=== PATIENT | female | born 1975 | race Caucasian/White ===

== ENCOUNTER → 2020-08-15 | Outpatient (CLI) | payer BC, OTHER ==
[~2020-08-15] MED LIST: ASPIR 8181 MG PO; BACTROBAN OINT22 GM EXT; CLEOCIN HCL300 MG PO; DIFLUCAN150 MG PO; EFFEXOR 25 MG T25 MG PO; IBUPROFEN600 MG PO; LODINE CAP 300300 MG PO; LOPRESSOR 25 MG25 MG PO; ZYVOX600 MG PO
== END ==
LOC: MAMO 10:15
DX: Z12.39 Encounter for other screening for malignant neoplasm of breast (principal)
CPT/HCPCS: 77063; 77067

== ENCOUNTER 2021-04-18 18:32 | Emergency (ER) | payer BC ==
[2021-04-18 19:48] LABS: HEMOGLOBIN 15.3 gm/dl (12.3-15.3); RED BLOOD COUNT 4.66 M/UL (4.00-5.10); WHITE BLOOD COUNT 6.6 K/UL (4.5-11.0)
[2021-04-18 20:25] LABS: BUN/CREATININE RATIO 20 (0-10)
[2021-04-19] MEDS ORDERED: ZOFRAN ODT 4 MG4 MG PO (00:53)
[2021-04-19] MEDS ORDERED: CYCLOBENZAPRINE10 MG PO (00:53)
== END 2021-04-19 01:00 | disposition home or self-care (01) ==
LOC: ER1 18:32
PROVIDERS: Physician Assistant
DX: S39.012A Strain of muscle, fascia and tendon of lower back, initial encounter (principal); R55 Syncope and collapse; Z90.710 Acquired absence of both cervix and uterus; X58.XXXA Exposure to other specified factors, initial encounter
CPT/HCPCS: 70450; 71045; 72125; 72128; 72131; 80053; 82550; 82553; 83874; 83880; 84484; 85025; 93005; 99284

== ENCOUNTER → 2021-10-05 | Outpatient (CLI) | payer BC ==
[~2021-10-05] MED LIST changes: +CYCLOBENZAPRINE10 MG PO; +ZOFRAN ODT 4 MG4 MG PO
== END ==
LOC: MAMO 15:00
DX: Z12.31 Encounter for screening mammogram for malignant neoplasm of breast (principal)
CPT/HCPCS: 77063; 77067

== ENCOUNTER → 2021-11-23 | Outpatient (CLI) | payer BC | LOC: MAMO 13:00 | DX: R92.8 Other abnormal and inconclusive findings on diagnostic imaging of breast (principal); N60.01 Solitary cyst of right breast | CPT/HCPCS: 76641-RT; 77065; G0279 ==